=== PATIENT | male | born 1980 | race Caucasian/White ===

== ENCOUNTER 2019-10-10 20:22 | Emergency (ER) | payer MEDICAID ==
[~2019-10-10] VITALS: Ht 182.9 cm; Wt 78.2 kg
[2019-10-10 20:43] VITALS: Ht 182.9 cm; Wt 78.2 kg
[2019-10-10 21:41] LABS: BASOPHILS 1.1 % (0-2); EOSINOPHILS 2.9 % (0-7); HEMATOCRIT 37.9 % (42.0-54.0); HEMOGLOBIN 12.8 g/dL (13.5-17.5); IMMATURE GRANULOCYTES 0.1 % (0-5); LYMPHOCYTES 23.6 % (15-50); MCH 31.1 pg (26.0-34.0); MCHC 33.8 g/dL (31.0-37.0); MCV 92.2 fL (80.0-100.0); MEAN PLATELET VOLUME 10.9 fL (7.4-10.4); MONOCYTES 8.6 % (2-11); NEUTROPHILS 63.7 % (40-80); PLATELET COUNT 252 10x3/uL (130-400); RBC 4.11 10x6/uL (4.20-6.10); RDW 13.7 % (11.5-14.5); WBC 8.4 10x3/uL (4.8-10.8)
[2019-10-10 21:58] LABS: ANION GAP 15.7 mmol/L (8-16); CARBON DIOXIDE 24.8 mmol/L (21.0-32.0); CREATININE - SERUM 1.3 mg/dL (0.6-1.3); POTASSIUM - SERUM 4.5 mmol/L (3.5-5.1)
[2019-10-10 22:05] LABS: ALBUMIN 3.6 g/dL (3.4-5.0); BILIRUBIN - TOTAL 0.37 mg/dL (0.2-1.3); C-REACTIVE PROTEIN 0.3 mg/dL (0.0-0.9); PROTEIN - SERUM 7.3 g/dL (6.4-8.2)
[2019-10-10] MEDS ORDERED: HYDROCODON-ACE1 EA10 PO (22:49)
[2019-10-10 22:56] LABS: ERYTHROCYTE SEDIMENTATION RATE 1 mm/hr (0-15)
[2019-10-10 23:33] VITALS: BP 140/86
== END 2019-10-10 23:35 | disposition home or self-care (01) ==
LOC: D.ER 20:22
PROVIDERS: Family Medicine
DX: L40.9 Psoriasis, unspecified (principal); R21 Rash and other nonspecific skin eruption; R52 Pain, unspecified; E11.9 Type 2 diabetes mellitus without complications; I10 Essential (primary) hypertension; Z72.0 Tobacco use